=== PATIENT | male | born 1980 | race Caucasian/White ===

== ENCOUNTER → 2019-06-26 | Outpatient (CLI) | payer OTHER ==
--- NOTE | 2019-06-26 10:20 | Diagnostic Imaging Report ---
TECHNIQUE: Magnetic resonance imaging of the RIGHT ANKLE was performed WITHOUT injected contrast. COMPARISON: None available. HISTORY: Pain of the Achilles tendon FINDINGS: LIGAMENTS: Medial Complex: Intact Lateral Complex: Intact, including the tibiofibular ligaments. TENDONS: Medial: Insertional tendinosis of the posterior tibial tendon. Lateral: Intact Anterior: Intact Achilles: Hypoxic tendinosis with complete tear of the Achilles tendon centered in the watershed zone with 4 cm distraction. BONES: No focal or infiltrative bone marrow replacing abnormality. No acute fracture or osteonecrosis. JOINTS: Cartilage: No focal defect is identified involving the tibiotalar joint. Other: Fluid within the joints is within physiologic limits. SOFT TISSUES: Otherwise, unremarkable. 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 Luca Wooten M.D. on 06/26/2019 10:17 AM
== END ==
LOC: MRI 07:27
PROVIDERS: ATTEND Family Medicine
DX: S86.011D Strain of right Achilles tendon, subsequent encounter (principal)